=== PATIENT | female | born 2000 | race Caucasian/White ===

== ENCOUNTER 2020-01-09 14:54 | Emergency (ER) | payer MEDICAID ==
[~2020-01-09] VITALS: Ht 170.2 cm; Wt 60.8 kg
[2020-01-09 15:12] VITALS: Ht 170.2 cm; Wt 60.8 kg
[2020-01-09 16:28] VITALS: BP 120/68
== END 2020-01-09 16:28 | disposition home or self-care (01) ==
LOC: ED 14:54
DX: L02.412 Cutaneous abscess of left axilla (principal); Z48.01 Encounter for change or removal of surgical wound dressing

== ENCOUNTER 2020-01-31 16:17 | Emergency (ER) | payer MEDICAID ==
[~2020-01-31] VITALS: Ht 170.2 cm; Wt 63.0 kg
[2020-01-31 16:26] VITALS: BP 119/67
== END 2020-01-31 16:58 | disposition home or self-care (01) ==
LOC: ED 16:17
DX: L73.2 Hidradenitis suppurativa (principal)